=== PATIENT | female | born 1985 | race Hispanic/Latino ===

== ENCOUNTER 2022-04-20 16:42 | Emergency (ER) | payer OTHER ==
[2022-04-20] MEDS ORDERED: Acetaminophen 500 MG TAB ONE (19:20)
[2022-04-20] MEDS ORDERED: Ibuprofen 800 MG TAB ONE (19:20)
== END 2022-04-20 20:21 | disposition home or self-care (01) ==
LOC: ERS 16:42
DX: J18.9 Pneumonia, unspecified organism (principal)
CPT/HCPCS: 71045

== ENCOUNTER 2022-04-22 17:19 | Emergency (ER) | payer OTHER ==
[2022-04-22] MEDS ORDERED: Azithromycin 250 MG TAB ONE (22:13)
== END 2022-04-22 22:49 | disposition home or self-care (01) ==
LOC: ERS 17:19
DX: J15.9 Unspecified bacterial pneumonia (principal)
CPT/HCPCS: 71046